=== PATIENT | male | born 1965 | race Caucasian/White ===

== ENCOUNTER 2019-12-28 16:25 | Inpatient (IN) | payer SELFPAY ==
[~2019-12-28] VITALS: Ht 170.2 cm; Wt 86.2 kg
[2019-12-28] MEDS ORDERED: SODIUM CHLORIDE 0.9% 1000ML 1,000 ML ONE (16:59)
[2019-12-28] MEDS: SODIUM CHLORIDE 0.9% 1000ML 1,000 ML IV SCH (17:10)
[2019-12-28 17:20] LABS: BASOPHILS % 0.2 % (0.0-1.0); EOSINOPHILS % 0.2 % (0.0-6.0); HEMATOCRIT 32.2 % (38.2-49.6); HEMOGLOBIN 11.5 g/dL (14.0-18.0); LYMPHOCYTES % 10.4 % (18.0-39.1); MEAN CORPUSCULAR HEMOGLOBIN 30.2 pg (28-32); MEAN CORPUSCULAR HGB CONC 35.7 g/dL (31-35); MEAN CORPUSCULAR VOLUME 84.5 fL (81-99); MONOCYTES # (AUTO) 0.8 (0.2-0.8); MONOCYTES % 8.2 % (4.4-11.3); NEUTROPHILS # (AUTO) 7.7 (2.1-6.9); NEUTROPHILS % 80.3 % (38.7-80.0); PLATELET COUNT 153 x10e3/uL (140-360); RED BLOOD COUNT 3.81 x10e6/uL (4.3-5.7)
[2019-12-28 17:39] LABS: ALBUMIN 2.9 g/dL (3.5-5.0); ALBUMIN/GLOBULIN RATIO 0.6 (0.8-2.0); ANION GAP 20.9 mmol/L (8-16); CALCIUM 8.3 mg/dL (8.4-10.2); CREATININE, SERUM 5.22 mg/dL (0.72-1.25); POTASSIUM 3.9 mmol/L (3.5-5.1)
[2019-12-28] MEDS ORDERED: LACTATED RINGER'S 1,000 ML INJ ONE (18:15)
[2019-12-28 19:19] LABS: CLARITY,URINE SL CLOUDY (CLEAR); COLOR,URINE YELLOW (YELLOW); KETONES,URINE NEGATIVE (NEGATIVE); LEUKOCYTE ESTERASE ,URINE NEGATIVE (NEGATIVE); NITRITE,URINE NEGATIVE (NEGATIVE); PROTEIN,URINE DIPSTICK 1+ (NEGATIVE); URINE UROBILINOGEN 0.2 mg/dL (0.2 - 1)
[2019-12-28 19:20] LABS: BILIRUBIN,URINE NEGATIVE (NEGATIVE)
[2019-12-28 19:31] LABS: AMORPHOUS SEDIMENT,URINE MODERATE (FEW); BACTERIA,URINE FEW /HPF; RBC,URINE 0-5 /HPF (0-5)
[2019-12-28 20:30] VITALS: BP 82/55
[2019-12-28] MEDS ORDERED: ATORVASTATIN CA10 MG PO (21:22)
[2019-12-28] MEDS ORDERED: OLMESARTAN-HCT1 EAC1 PO (21:22)
[2019-12-28] MEDS: LACTATED RINGER'S 1,000 ML INJ SCH (21:30)
[2019-12-28 21:46] VITALS: BP 82/55
[2019-12-28 21:47] VITALS: BP 82/55
[2019-12-29] VITALS (8 sets, daily range): BP systolic 87–97; BP diastolic 53–68
[2019-12-29] MEDS: LACTATED RINGER'S 1,000 ML INJ SCH ×3 (02:15→16:23)
[2019-12-29] MEDS: SODIUM CHLORIDE 0.9% 1000ML 1,000 ML IV SCH (03:15)
[2019-12-29 06:16] LABS: EOSINOPHILS % 0.2 % (0.0-6.0); HEMATOCRIT 26.3 % (38.2-49.6); LYMPHOCYTES # (AUTO) 0.7 (1.0-3.2); LYMPHOCYTES % 11.8 % (18.0-39.1); MEAN CORPUSCULAR HEMOGLOBIN 28.8 pg (28-32); MEAN CORPUSCULAR HGB CONC 34.2 g/dL (31-35); MONOCYTES # (AUTO) 0.6 (0.2-0.8); MONOCYTES % 9.7 % (4.4-11.3); NEUTROPHILS # (AUTO) 4.8 (2.1-6.9); NEUTROPHILS % 77.3 % (38.7-80.0); PLATELET COUNT 146 x10e3/uL (140-360); RED BLOOD COUNT 3.13 x10e6/uL (4.3-5.7); RED CELL DISTRIBUTION WIDTH 14.7 % (11.7-14.4)
[2019-12-29 06:42] LABS: ANION GAP 15.1 mmol/L (8-16); CALCIUM 7.7 mg/dL (8.4-10.2); CREATININE, SERUM 3.06 mg/dL (0.72-1.25); POTASSIUM 4.1 mmol/L (3.5-5.1)
[2019-12-29] MEDS ORDERED: HYDRALAZINE HCL 20 MG/ML VIAL IV PRN (07:00)
[2019-12-29] MEDS ORDERED: ACETAMINOPHEN 325 MG TAB PO PRN (07:00)
[2019-12-29] MEDS ORDERED: ONDANSETRON HCL INJ 2MG/ML 2ML 2 MG/ML VIAL IV PRN (07:00)
[2019-12-29] MEDS ORDERED: DOCUSATE SODIUM 100 MG CAP PO PRN (07:00)
[2019-12-29] MEDS ORDERED: SODIUM CHLORIDE 0.9% 500ML 500 ML IV ONE ×2 (07:40→08:30)
[2019-12-29] MEDS ORDERED: MIDODRINE HCL 5 MG TABLET PO ONE (07:50)
[2019-12-29] MEDS: SODIUM BICARBONATE 650 MG TAB PO SCH ×2 (08:01→16:23)
[2019-12-29] MEDS ORDERED: ATORVASTATIN 10 MG TAB PO SCH (21:00)
[2019-12-30] VITALS: BP 99/65
[2019-12-30] MEDS: MIDODRINE 2.5 MG TAB PO SCH ×3 (03:00→13:48)
[2019-12-30] MEDS: LACTATED RINGER'S 1,000 ML INJ SCH ×2 (03:00→13:48)
[2019-12-30 04:00] VITALS: BP 101/68
[2019-12-30 07:41] VITALS: BP 112/74
[2019-12-30 08:28] LABS: BASOPHILS % 0.2 % (0.0-1.0); EOSINOPHILS % 0.6 % (0.0-6.0); HEMATOCRIT 28.5 % (38.2-49.6); HEMOGLOBIN 9.5 g/dL (14.0-18.0); LYMPHOCYTES # (AUTO) 0.8 (1.0-3.2); LYMPHOCYTES % 15.8 % (18.0-39.1); MEAN CORPUSCULAR HEMOGLOBIN 29.1 pg (28-32); MEAN CORPUSCULAR HGB CONC 33.3 g/dL (31-35); MEAN CORPUSCULAR VOLUME 87.2 fL (81-99); MONOCYTES # (AUTO) 0.6 (0.2-0.8); MONOCYTES % 11.4 % (4.4-11.3); NEUTROPHILS # (AUTO) 3.7 (2.1-6.9); NEUTROPHILS % 71.2 % (38.7-80.0); PLATELET COUNT 182 x10e3/uL (140-360); RED BLOOD COUNT 3.27 x10e6/uL (4.3-5.7); RED CELL DISTRIBUTION WIDTH 14.9 % (11.7-14.4)
[2019-12-30] MEDS: SODIUM BICARBONATE 650 MG TAB PO SCH ×2 (08:34→16:44)
[2019-12-30 08:53] LABS: ANION GAP 13.1 mmol/L (8-16); CALCIUM 8.1 mg/dL (8.4-10.2); CREATININE, SERUM 1.58 mg/dL (0.72-1.25); POTASSIUM 4.1 mmol/L (3.5-5.1)
[2019-12-30 08:54] VITALS: BP 112/74
[2019-12-30 11:06] VITALS: BP 120/74
[2019-12-30] MEDS ORDERED: ONDANSETRON HCL 4 MG ORAL DISINTEGRATING TAB PO PRN (11:45)
[2019-12-30 15:43] VITALS: BP 117/68
== END 2019-12-30 17:40 | disposition home or self-care (01) | DRG 683 ==
LOC: ER 17:34 → ERHOLD 18:07 → MED/SURG2 20:05
PROVIDERS: ADMIT Internal Medicine; ATTEND Internal Medicine
DX: N17.9 Acute kidney failure, unspecified (principal); E87.2 Acidosis; E86.0 Dehydration; I10 Essential (primary) hypertension; E87.8 Other disorders of electrolyte and fluid balance, not elsewhere classified; E78.5 Hyperlipidemia, unspecified
CPT/HCPCS: 36415; 76770; 80048; 80053; 81001; 83880; 84484; 85025; 93005; 96361; 99251; 99284; J7030; J7040; J7121; U0002